=== PATIENT | male | born 1995 | race Caucasian/White ===

== ENCOUNTER 2016-06-04 21:55 | Emergency (ER) | payer OTHER ==
[~2016-06-04] VITALS: Ht 172.7 cm; Wt 64.0 kg
[~2016-06-04 21:55] MED LIST: ASPEC325 PO
[2016-06-04 22:06] VITALS: TEMP 37.1; Ht 172.7 cm; Wt 64.0 kg
[2016-06-04] MEDS ORDERED: CHOL1000 PO (22:48)
[2016-06-04] MEDS ORDERED: OXYCODONE IR HOME PACK PO ONE (23:30)
[2016-06-04] MEDS ORDERED: OXYC1TAB3 PO (23:51)
[2016-06-05 00:06] VITALS: BP 116/75; PULSE 94; O2SAT 94
--- NOTE | 2016-06-05 05:06 | EMERGENCY ROOM VISIT NOTE ---
ED Visit Note First contact with patient: 22:30 CHIEF COMPLAINT: Left willingham pain HISTORY OF PRESENT ILLNESS: This 20-year-old patient presents to the emergency department with friend after sustaining an injury to the left willingham during hockey when he was slammed into the wall . The patient complains of pain along the midshaft of the willingham. The patient denies pain of the foot knee, hip, ankle. The patient rates the pain as throbbing and 5/10. The patient is not able to bear weight on the foot. Constant pain, worse with movement, weight bearing, and the dependent position. No knee pain, the patient is able to move their toes. No numbness or weakness of the foot, no laceration. The patient has not had a previous fracture to this ankle. The patient has taken nothing for the pain. The patient denies any other injury. Patient has prior surgery on the site for chainsaw injury last year. Nolvia it was his orthopedic doctor REVIEW OF SYSTEMS: A 6 system review of systems was completed with positives and pertinent negatives listed in the HPI. ALLERGIES: bee MEDICATIONS: None PMH: Left leg injury SOCIAL HISTORY: No drug use PHYSICAL EXAM: Vital Signs: Reviewed Nurse's notes, vital signs stable. GENERAL : Pleasant male, no acute distress, but appears in pain, well-developed, well- nourished. MENTAL STATUS: Alert, oriented to person place and time, and cooperative. MUSCULOSKELETAL: The left midshaft of the tib-fib is edematous concerning for injury with prior surgical scars present and tender to palpation. Left knee, ankle, foot and hip are nontender to palpation The foot and toes are warm and well-perfused. Dorsalis pedis pulse 2+. Sensation to pain and light touch is intact. Capillary refill less than 2 seconds. EMERGENCY DEPARTMENT COURSE: I examined the patient. Patient declined pain meds. X-rays of the left tib-fib were reviewed by myself and my attending concerning for comminuted midshaft of the tibia. I consulted orthopedics and Dr. De Souza recommends posterior splint with stirrup and crutches. He recommends patient be nonweightbearing and will see the patient tomorrow in clinic. Ortho-Glass stirrup and posterior splint was applied to the tib-fib under my direction and the position was satisfactory. Neurovascular status was rechecked and intact. The patient was instructed on the use of crutches. The patient was discharged home in good condition. He was advised to call orthopedics at 8 AM in the morning for definitive care for the injury. He was advised to return to the ER immediately for severe pain, numbness, tingling, worsening sign or symptoms or as needed. DIAGNOSIS: Left comminuted fracture of the tibia DISCHARGE INSTRUCTIONS: As below Current/Historical Medications Scheduled Cholecalciferol (Vitamin D3), 1 TAB PO DAILY Scheduled PRN Oxycodone Immediate Rel Tab (Roxicodone Ir), 1-2 TAB PO Q4H PRN for Severe Pain Allergies Uncoded Allergies: BEE STINGS (Allergy, Unknown, 07/01/02) Vital Signs Date Time Temp Pulse Resp B/P Pulse Ox O2 Delivery O2 Flow Rate FiO2 06/05/16 00:06 94 18 116/75 94 Room Air 06/04/16 22:06 37.1 103 18 134/80 98 Room Air Medications Administered Medications (Trade) Dose Ordered Sig/Nazia Route Start Time Stop Time Status Last Admin Dose Admin Oxycodone HCl (Roxicodone Immediate Rel 5MG Home Pack) 1 homepack UD ONCE PO 06/04/16 23:30 06/04/16 23:31 DC 06/05/16 00:14 1 HOMEPACK Departure Information Impression Primary Impression: Closed left tibial fracture Dispostion Home / Self-Care Condition GOOD Prescriptions Oxycodone Immediate Rel Tab (ROXICODONE IR) 5 Mg Tab 1-2 TAB PO Q4H Y for Severe Pain, #20 TAB Prov: Rehka Vick .EASTON 06/04/16 Referrals Bi De SouzaDErwinO. Forms HOME CARE DOCUMENTATION FORM, Work Instructions, Return To Work: 3 days IMPORTANT VISIT INFORMATION Patient Instructions My [facility], ED Fx Lower Ext Additional Instructions DO NOT drive, drink alcohol, operate machinery, or perform dangerous activities today. You were given medications in the ER that can affect your ability to safely function or operate a vehicle. Oxycodone (OxyIR) 5mg: Take 1-2 pills every four hours for breakthrough pain. Avoid alcohol, operating machinery or dangerous equipment, working on ladders or roofs, DRIVING, or situations where being under the influence may be dangerous. It is recommended to use an skaj-fwb-mogegve stool softener such as Colace, 100mg twice daily while taking this medication to avoid constipation. NO MOTRIN or any NSAIDs until cleared by ORTHO. Acetaminophen(Tylenol) may be used for fever or pain. Use 1000mg every six hours as needed. Avoid using more than 3000mg in a 24 hour period. This medication can be taken if you need to drive, work, or perform activities which may be dangerous when taking narcotic pain medication. Ice compresses for 20 minutes at a time four times daily for 2-3 days. Use the crutches as instructed. REMAIN NONE WEIGHT BEARING UNTIL CLEARED BY ORTHO. Rest and elevate your injury. Do not get the splint wet. If your splint feels excessively tight, you have worsening pain, develop numbness or tingling, or your digits appear blue, loosen the adolfo wrap. Then reapply the adolfo wrap gently without removing the splint. If your symptoms are not quickly relieved return to the ER for re- evaluation. Continue current medications. Return to the ER immediately for any numbness, tingling, severe pain, extreme swelling in the extremity or as needed. Call Orthopedics tomorrow to arrange follow up for your injury. Work Instructions Return To Work: 3 days
--- NOTE | 2016-06-05 06:35 | DIAGNOSTIC IMAGING REPORT ---
LEFT TIBIA/FIBULA 2 VIEWS ROUTINE CLINICAL HISTORY: Left willingham injury. COMPARISON: Left tibia and fibular radiographs July 21, 2015. FINDINGS: There is a mildly displaced, comminuted fracture within the mid shaft of the left tibia. This is the site of injury shown on exam of July 21, 2015. No acute fracture of the left fibula is identified. Alignment of the left knee and ankle appears anatomic. There is no left knee joint effusion. IMPRESSION: Mildly displaced comminuted mid shaft fracture of the left tibia, at site of injury shown on earlier exam of July 21, 2015. The underlying cortex is heterogeneous and this is a site of injury shown on exam of July 21, 2015. This suggest an acute fracture superimposed upon old injury. Electronically signed by: Mikhail Dickens M.D. 06/05/2016 6:33 AM Dictated Date/Time: 06/05/2016 6:29 AM
[2016-06-06] MEDS ORDERED: CHOL1TAB53 PO (12:51)
[2016-06-06] MEDS ORDERED: OXYC1TAB3 PO (12:51)
== END 2016-06-05 00:22 | disposition home or self-care (01) ==
LOC: C.EDB 21:58 → C.EDC 06-05 00:22
DX: S82.252A Displaced comminuted fracture of shaft of left tibia, initial encounter for closed fracture (principal); W50.0XXA Accidental hit or strike by another person, initial encounter; Y93.22 Activity, ice hockey

== ENCOUNTER 2016-06-07 14:40 | Observation (INO) | payer OTHER ==
[2016-06-06 12:45] VITALS: BMI 21.0
--- NOTE | 2016-06-06 18:13 | HISTORY & PHYSICAL EXAMINATION ---
DATE OF ADMISSION: 06/07/2016 SUBJECTIVE CHIEF COMPLAINT: Left lower leg pain. HISTORY OF PRESENT ILLNESS: This is a patient who was playing hockey yesterday when he and another player collided against the boards. He is unsure of exactly how the leg was injured; however, he had significant pain on the left lower extremity. He was taken to the Emergency Room at [facility] where x-rays were performed. He was noted to have a displaced tibia fracture. He is now being set up for surgical treatment. PAST MEDICAL HISTORY: None. PAST SURGICAL HISTORY: Surgery for a chainsaw injury to his left lower extremity 1 year ago. ALLERGIES: No known drug allergies. CURRENT MEDICATIONS: None. FAMILY HISTORY: Noncontributory. SOCIAL HISTORY: The patient denies alcohol and tobacco use. OBJECTIVE PHYSICAL EXAMINATION: GENERAL: The patient is alert and oriented x3. He is in no acute distress. He is a well-dressed, well-nourished 20-year-old male whose affect is appropriate. CARDIOVASCULAR: Heart has a regular rhythm and rate without murmurs Post. tib pulse +2/4, capillary refill less than 2 seconds. LUNGS: Clear to auscultation bilateral. LYMPHATICS: No evidence of any swollen lymph nodes. MUSCULOSKELETAL: The patient is nonweightbearing on the left lower extremity, using crutches and a wheelchair. Upon inspection of the left lower extremity, he has swelling of the left tibia. There is tenderness over the mid shaft area of the tibia. No range of motion or strength testing was performed. SKIN: There are no scars, rashes or ulcers noted. NEUROLOGIC: Sensation is normal and intact distally, left lower extremity. X-RAY EXAMINATION: AP and lateral views of the left tibia and fibula noted an angulated oblique fracture of the tibial shaft. ASSESSMENT AND DIAGNOSES: 1. Left tibial fracture. PLAN: Above assessment was discussed with the patient and his family. At this time it was recommended the patient undergo an ORIF of the left tibia with an intramedullary nail. All potential risks, benefits, complications, alternatives and rehab have been discussed with the patient. At this time he wishes to proceed with surgery as indicated. He is scheduled for the surgery on 06/07/2016. SHORTY
[~2016-06-07] VITALS: Ht 172.7 cm; Wt 64.5 kg
[~2016-06-07 14:40] MED LIST changes: -ASPEC325 PO; +CEFAZOLIN 1000MG/55 ML D5W IV SCH; +CHOL1TAB53 PO; +LACTATED RINGER'S 1000ML 1,000 ML IV SCH; +OXYC1TAB3 PO
[2016-06-07 15:10] LABS: HEMATOCRIT 45.5 % (42-52); MEAN CELL VOLUME 85.4 fL (80-100); MEAN CORPUSCULAR HEMOGLOBIN 29.5 pg (25-34); MEAN PLATELET VOLUME 9.4 fL (7.4-10.4); PLATELET COUNT 247 K/uL (130-400); RED BLOOD COUNT 5.33 M/uL (4.7-6.1); WHITE BLOOD COUNT 8.47 K/uL (4.8-10.8)
[2016-06-07 15:11] VITALS: BP 127/81; PULSE 88; TEMP 36.6; O2SAT 100; Ht 172.7 cm; Wt 64.5 kg
[2016-06-07 15:18] LABS: MEAN CORPUSCULAR HGB CONC 34.5 g/dl (32-36)
--- NOTE | 2016-06-07 15:19 | History & Physical Bridge Note ---
H&P Re-Evaluation Bridge Note: I have examined the patient, reviewed the History & Physical and in the interval since the performance of the History & Physical I have noted the following changes of clinical significance: No changes noted
[2016-06-07] MEDS ORDERED: MIDAZOLAM HCL 1 MG/ML 2ML VIAL ONE (15:52)
[2016-06-07] MEDS ORDERED: ROCURONIUM BROMIDE 10 MG/ML 5 ML VIAL ONE (15:57)
[2016-06-07] MEDS ORDERED: ONDANSETRON INJ 2 MG/ML 2 ML VIAL ONE (15:57)
[2016-06-07] MEDS ORDERED: DEXAMETHASONE SOD INJ 4 MG/ML VIAL ONE (15:57)
[2016-06-07] MEDS ORDERED: NEOSTIGMINE METHYLSULFATE 5 MG/5 ML SYR ONE (15:57)
[2016-06-07] MEDS ORDERED: PROPOFOL IV EMULSION 10 MG/ML 20 ML VIAL IV ONE (15:57)
[2016-06-07] MEDS ORDERED: LIDOCAINE HCL 2% 2 ML VIAL (20MG/ML) ONE (15:57)
[2016-06-07] MEDS ORDERED: GLYCOPYRROLATE INJ 0.2 MG/ML VIAL ONE (15:57)
[2016-06-07] MEDS ORDERED: FENTANYL CITRATE INJ 50 MCG/1 ML 2 ML VIAL ONE ×2 (15:57→18:30)
[2016-06-07] MEDS ORDERED: HYDROmorphone INJ 2 MG/ML SYR/VIAL ONE ×2 (16:54→18:57)
[2016-06-07] MEDS ORDERED: BACITRACIN 50,000 UNITS IT ONE (17:59)
--- NOTE | 2016-06-07 18:09 | [facility] Post Operative Brief Note ---
Immediate Operative Summary Operative Date Jun 07, 2016. Pre-Operative Diagnosis Left closed displaced midshaft tibial fracture Post-Operative Diagnosis Same as preoperative diagnosis Procedure(s) Performed Left tibia: open reduction internal fixation tibia shaft fracture with intramedullary nail Surgeon Dr. De Souza Shipping And Receiving Associate Surgeon(s) Angela Patterson PA-C Estimated Blood Loss 10ml Findings See dict Specimens none Drains None Anesthesia GLMA Complication(s) None Disposition Recovery Room / PACU
[2016-06-07] MEDS ORDERED: ONDANSETRON INJ 2 MG/ML 2 ML VIAL IV PRN ×2 (18:30→18:45)
[2016-06-07] MEDS ORDERED: OXYCODONE HCL IR 5 MG TAB (IMMEDIATE RELEASE) PO PRN (18:30)
[2016-06-07] MEDS ORDERED: MAGNESIUM HYDROXIDE SUSP 30 ML UDC PO PRN (18:30)
[2016-06-07] MEDS ORDERED: ZOLPIDEM TARTRATE 5 MG TAB PO PRN (18:30)
[2016-06-07] MEDS ORDERED: MoRPHine SULFATE 2 MG/ML CARP IV PRN ×2 (18:30→21:30)
[2016-06-07] MEDS ORDERED: METOCLOPRAMIDE HCL INJ 5 MG/ML 2 ML VIAL IV PRN (18:30)
[2016-06-07] MEDS ORDERED: ALUMINUM/MAGNESIUM/SIMETH (MAALOX MAX) 30 ML UDC PO PRN (18:30)
[2016-06-07] MEDS ORDERED: EpHEDrine SULFATE INJ 50 MG/ML AMP IV PRN (18:45)
[2016-06-07] MEDS ORDERED: ATROPINE SULFATE 0.1 MG/ML 5ML SYR IV PRN (18:45)
[2016-06-07] MEDS ORDERED: FENTANYL CITRATE INJ 50 MCG/1 ML 2 ML VIAL IV PRN (18:45)
[2016-06-07] MEDS ORDERED: HYDROmorphone INJ 1 MG/ML SYR IV PRN (18:45)
--- NOTE | 2016-06-07 19:14 | DIAGNOSTIC IMAGING REPORT ---
INTRAOPERATIVE LEFT TIBIA AND FIBULA CLINICAL HISTORY: Fracture status post internal fixation COMPARISON STUDY: 06/04/2016 FINDINGS: 7 fluoroscopic spot images are provided for interpretation. 2 minutes and 7 seconds of fluoroscopic time was utilized. The patient's left tibial fracture has been internally fixated with intramedullary addi. This is stabilized proximally with 2 transverse screws, and distally with 2 transverse screws. IMPRESSION: Internally fixated right tibial fracture with an intramedullary addi. Electronically signed by: Clay Mayer M.D. 06/07/2016 7:12 PM Dictated Date/Time: 06/07/2016 7:11 PM
[2016-06-07] MEDS ORDERED: DiphenhydrAMINE HCL 50 MG/ML VIAL ONE (19:38)
[2016-06-07 19:50] VITALS: BP 161/83; PULSE 102; TEMP 37.4; O2SAT 93
[2016-06-07 20:21] VITALS: BP 151/81; PULSE 93; TEMP 36.7; O2SAT 92
--- NOTE | 2016-06-07 20:30 | Anesthesiology Progress Note ---
Anesthesia Post Op Note Date & Time Jun 07, 2016 at 20:30 Vital Signs Pain Intensity: 4.0 Vital Signs Past 12 Hours Date Time Temp Pulse Resp B/P Pulse Ox O2 Delivery O2 Flow Rate FiO2 06/07/16 20:21 36.7 93 14 151/81 92 Room Air 06/07/16 19:50 Room Air 06/07/16 19:50 37.4 102 16 161/83 93 Room Air 06/07/16 19:19 105 13 100 06/07/16 19:19 104 13 06/07/16 19:18 151/90 06/07/16 19:16 37.4 110 16 151/90 100 Nasal Cannula 2 06/07/16 19:14 103 13 151/91 99 06/07/16 19:14 105 13 06/07/16 19:09 94 7 100 06/07/16 19:09 96 7 06/07/16 19:08 147/89 06/07/16 19:04 98 7 06/07/16 19:04 92 7 100 06/07/16 19:03 153/91 06/07/16 19:00 95 7 99 06/07/16 19:00 93 7 06/07/16 18:58 144/90 06/07/16 18:55 87 11 06/07/16 18:55 90 11 99 06/07/16 18:54 162/100 06/07/16 18:53 148/98 06/07/16 18:50 103 12 100 06/07/16 18:50 105 12 06/07/16 18:48 159/100 06/07/16 18:45 103 11 06/07/16 18:45 103 11 100 06/07/16 18:43 150/93 06/07/16 18:40 99 10 100 06/07/16 18:40 98 10 06/07/16 18:38 143/96 06/07/16 18:35 97 13 100 06/07/16 18:35 98 13 06/07/16 18:33 165/107 06/07/16 18:30 99 15 06/07/16 18:30 99 15 100 06/07/16 18:28 167/107 06/07/16 18:26 185/117 06/07/16 18:25 113 14 96 06/07/16 18:25 111 14 06/07/16 18:25 36.9 114 18 171/106 99 Mask 10 06/07/16 15:11 36.6 88 18 127/81 100 Notes Mental Status: alert / awake / arousable, participated in evaluation Pt Amnestic to Procedure: Yes Nausea / Vomiting: adequately controlled Pain: adequately controlled Airway Patency, RR, SpO2: stable & adequate BP & HR: stable & adequate Hydration State: stable & adequate Anesthetic Complications: no major complications apparent
[2016-06-07 20:54] VITALS: BP 159/88; PULSE 97; TEMP 37.1; O2SAT 93
--- NOTE | 2016-06-07 21:12 | OPERATIVE REPORT ---
DATE OF OPERATION: 06/07/2016 PREOPERATIVE DIAGNOSIS: Left closed displaced midshaft tibial fracture. POSTOPERATIVE DIAGNOSIS: Same. PROCEDURE: Open reduction internal fixation with intramedullary nailing, left tibial fracture with a Synthes 10 mm x 360 mm titanium cannulated tibial nail with four 5 mm titanium locking screws, 2 proximal interlocks and 2 distal interlocks. SURGEON: Dr. De Souza. PRIMARY HEALTH ORGANISATION MANAGER: Chidi Patterson PA-C, who was present for patient positioning, sterile prep and drape, management of retractors and instruments. He was present through the critical portions of the case including wound closure, application of sterile dressing and transport of the patient to recovery. ANESTHESIA: General LMA. SPECIMENS: None. DRAINS: None. COMPLICATIONS: None. BLOOD LOSS: 10 mL. PERTINENT HISTORY: This is a 20-year-old gentleman who was playing hockey struck the boards by a player and had immediate left tibia pain. Unable to ambulate, transported to [facility], seen in the Emergency Department and diagnosed with a tibia fracture, confirmed with radiographs, splinted and then sent for orthopedic evaluation. The patient was then scheduled for surgery as indicated. All potential risks, benefits, complications, alternatives, potential for incomplete relief of symptoms, need for further surgery, DVT, PE, , persistent pain, swelling, scarring, weakness, neurovascular injury, wound complications, hardware breakage, nonunion, malunion or wound dehiscence was discussed with patient and his family and decided to proceed with the procedure as indicated. PROCEDURE: The patient was taken to the operative suite, placed supine on the operating room table. After reviewing consent and identification of proper operative site, the patient was anesthetized, LMA was placed. Tourniquet was placed high on the left thigh over cast padding. Left lower extremity was then sterilely prepped and draped in usual fashion, elevated, and exsanguinated with an Esmarch bandage and tourniquet inflated to 350 mmHg. Next, a 10 blade scalpel was used to make an incision just to the medial border of the patellar tendon at the level of the knee joint. The incision was deepened through subcutaneous tissue. Meticulous hemostasis was achieved with electrocautery. Thickness skin flaps were developed. Fascia was incised along the skin incision revealing the patellar tendon. Patellar tendon was then carefully retracted and protected. The incision was deepened through the subcutaneous tissue into the level of the joint capsule, joint capsule was then incised revealing the fat pad, the fat pad was maintained intact. The anterior central aspect of the tibia was visualized and then with appropriate retractors for retracting soft tissue, a guide addi was placed approximately tibia confirmed using AP and lateral C-arm projections. Next, proximal reaming was performed to open the canal, followed by placement of ball tip guide addi which was placed to the proximal portion of the fracture using live fluoroscopic assistance, the ball-tip guidewire was passed across the fracture into the distal fragment to place in the center-center position of the distal tibia. Next, sequential reaming was performed from 8 mm up to a size of 11.5 mm. Next, this nail was measured to be 360 mm nail and then the wound was copiously irrigated with pulsatile lavage with bacitracin followed by implantation of a 360 mm x 10 mm titanium cannulated tibial nail. This was placed without difficulty stabilizing the fracture in near anatomic position. There was some minor displacement of the posterior butterfly fragment which was noted on the prior radiographs. Next, the proximal interlocking screws were placed using the targeting alignment jig proximally with a small percutaneous incision in the proximal medial tibia followed by use of a hemostat to spread the soft tissues and then placement of the appropriate length screws under live fluoroscopic assistance. Next, using free hand technique, 2 distal interlocking screws were placed after the foot was backslapped to compress the fracture. Two small incisions were made in the distal medial tibial shaft under live fluoroscopic assistance. Distal interlocking screws were placed, 5 mm in diameter of appropriate length. Next, final x-rays were obtained, AP and lateral views noting near anatomic reduction of the fracture stable fixation of the tibia by intramedullary nailing. Next, all wounds were copiously irrigated with sterile normal saline with bacitracin and the kneecaps was closed using #1 Vicryl. The peritenon was closed using 2-0 Vicryl, the dermis was closed using buried interrupted 2-0 Vicryl and skin was closed using interrupted nylon sutures. Next, the stab incisions of the medial tibia were closed using interrupted nylon sutures. A sterile compressive dressing was applied, overwrapped with a posterior splint and Chuy wrap. The foot was held in neutral dorsiflexion. Next, the tourniquet was released, the patient was awakened and taken to recovery in stable condition. I attest to the content of the Intraoperative Record and any orders documented therein. Any exceptio ns are noted below.
[2016-06-07] MEDS: D5W AND 1/2NSS + 20MEQ KCL 1,000 ML IV SCH (21:30)
[2016-06-07] MEDS ORDERED: IV FLUIDS COMPLETED PRN (21:30)
[2016-06-07] MEDS: CEFAZOLIN IV 1,000 MG in DEXTROSE 5% 50ML 50 ML IV SCH (21:30)
[2016-06-07] MEDS ORDERED: MoRPHine SULFATE 4 MG/ML 1 ML CARP\\VIAL IV PRN (21:30)
[2016-06-07] MEDS ORDERED: MoRPHine SULFATE 10 MG/ML CARP/VIAL IV PRN (21:30)
[2016-06-07] MEDS: ACETAMINOPHEN 500 MG TAB PO SCH (21:31)
[2016-06-07 21:57] VITALS: BP 152/85; PULSE 98; TEMP 37; O2SAT 93
[2016-06-07 22:52] VITALS: BP 149/89; PULSE 98; TEMP 37; O2SAT 96
[2016-06-08 04:00] VITALS: BP 139/90; PULSE 98; TEMP 36.8; O2SAT 96
[2016-06-08] MEDS: ACETAMINOPHEN 500 MG TAB PO SCH (05:29)
[2016-06-08] MEDS: CEFAZOLIN IV 1,000 MG in DEXTROSE 5% 50ML 50 ML IV SCH (05:29)
[2016-06-08] MEDS: D5W AND 1/2NSS + 20MEQ KCL 1,000 ML IV SCH (05:42)
[2016-06-08 08:01] VITALS: BP 140/90; PULSE 83; TEMP 37.2; O2SAT 99
[2016-06-08] MEDS ORDERED: FERROUS GLUCONATE 324 MG TAB PO SCH (08:30)
[2016-06-08] MEDS ORDERED: MULTIVITAMIN TAB PO SCH (09:00)
[2016-06-08] MEDS ORDERED: PANTOprazole SOD 40 MG TAB PO SCH (09:00)
[2016-06-08] MEDS ORDERED: ASPIRIN 325 MG ECTAB PO SCH (09:00)
--- NOTE | 2016-06-08 09:32 | Orthopedic Progress Note ---
Orthopedic Progress Note Date of Service Jun 08, 2016. Subjective Post OP Day: 1 Reports: feeling well Objective N/V intact, dressing C/D/I, toes mobile Date Time Temp Pulse Resp B/P Pulse Ox O2 Delivery O2 Flow Rate FiO2 06/08/16 08:01 37.2 83 16 140/90 99 Room Air 06/08/16 08:01 Room Air 06/08/16 04:00 36.8 98 16 139/90 96 Room Air 06/08/16 00:12 Room Air 06/07/16 22:52 37.0 98 149/89 96 Room Air 06/07/16 21:57 37.0 98 14 152/85 93 Room Air 06/07/16 20:54 37.1 97 14 159/88 93 Room Air 06/07/16 20:21 36.7 93 14 151/81 92 Room Air 06/07/16 19:50 Room Air 06/07/16 19:50 93 Room Air 06/07/16 19:50 37.4 102 16 161/83 93 Room Air 06/07/16 19:19 105 13 100 06/07/16 19:19 104 13 06/07/16 19:18 151/90 06/07/16 19:16 37.4 110 16 151/90 100 Nasal Cannula 2 06/07/16 19:14 103 13 151/91 99 06/07/16 19:14 105 13 06/07/16 19:09 94 7 100 06/07/16 19:09 96 7 06/07/16 19:08 147/89 06/07/16 19:04 98 7 06/07/16 19:04 92 7 100 06/07/16 19:03 153/91 06/07/16 19:00 95 7 99 06/07/16 19:00 93 7 06/07/16 18:58 144/90 06/07/16 18:55 87 11 06/07/16 18:55 90 11 99 06/07/16 18:54 162/100 06/07/16 18:53 148/98 06/07/16 18:50 103 12 100 06/07/16 18:50 105 12 06/07/16 18:48 159/100 06/07/16 18:45 103 11 06/07/16 18:45 103 11 100 06/07/16 18:43 150/93 06/07/16 18:40 99 10 100 06/07/16 18:40 98 10 06/07/16 18:38 143/96 06/07/16 18:35 97 13 100 06/07/16 18:35 98 13 06/07/16 18:33 165/107 06/07/16 18:30 99 15 06/07/16 18:30 99 15 100 06/07/16 18:28 167/107 06/07/16 18:26 185/117 06/07/16 18:25 113 14 96 06/07/16 18:25 111 14 06/07/16 18:25 36.9 114 18 171/106 99 Mask 10 06/07/16 15:11 36.6 88 18 127/81 100 Laboratory Results 24 Hours: Test 06/07/16 15:04 Hematocrit 45.5 % Hemoglobin 15.7 g/dL Assessment & Plan Assessment: 20 yo male stable POD #1 s/p IM nail left tibia Plan: 1. DVT prophylaxis- ASA 2. D/C planing- home today
[2016-06-08] MEDS ORDERED: ASPEC325 PO (09:34)
[2016-06-08] MEDS ORDERED: RXC5 PO (09:34)
[2016-06-08] MEDS ORDERED: ACET-1138 PO (09:34)
--- NOTE | 2016-06-08 09:37 | Discharge Instructions ---
Discharge Instructions Admission Reason for Admission: Left Tibia Shaft Fracture Discharge Discharge Diagnosis / Problem: Left tibial shaft fracture Discharge Goals Goal(s): Decrease discomfort, Improve function Activity Recommendations Activity Limitations: as noted below Weightbearing Status: Left non-weightbearing . Instructions / Follow-Up Instructions / Follow-Up Nonweightbearing left lower extremity with crutches. Frequent ice and elevation. Move toes. Maintain dressing/splint until follow-up with MD ~ 10- 14 days. Call office to make appt for follow-up in 10-14 days Current Hospital Diet Patient's current hospital diet: Regular Diet Discharge Diet Recommended Diet: Regular Diet Procedures Procedures Performed: Left tibia: open reduction internal fixation tibia shaft fracture with intramedullary nail Pending Studies Studies pending at discharge: no Medical Emergencies . Who to Call and When: Medical Emergencies: If at any time you feel your situation is an emergency, please call 911 immediately. . Non-Emergent Contact Non-Emergency issues call your: Surgeon Call Non-Emergent contact if: temperature is above 101.5, your pain is not controlled, wound has increased drainage, wound has increased redness . "Provider Documentation" section prepared by Chidi Patterson PA-C. VTE Core Measure Inpt VTE Proph given/why not?: Other Anticoagulation (ASA 325mg daily), T.E.D. Stockings, SCD's
[2016-06-08 09:55] VITALS: BP 140/90; PULSE 83; TEMP 37.2; O2SAT 99
[2016-06-08 11:22] VITALS: BP 131/83
--- NOTE | 2016-06-12 15:20 | DISCHARGE SUMMARY ---
CHIEF COMPLAINT: Left tibia fracture. Please see complete history and physical examination. HOSPITAL COURSE: The patient underwent left tibial IM nailing without complication. He tolerated the procedure well and was discharged to the recovery room in stable condition. His postoperative course was relatively uneventful. His postoperative pain was reasonably well controlled with a combination of IV and oral pain medications. He was started on aspirin for DVT prophylaxis. He was comfortable the next day and was discharged home. He will ambulate nonweightbearing with crutches. He will maintain his splint/dressing until up with Dr. De Souza in approximately 10-14 days.
== END 2016-06-08 12:05 | disposition home or self-care (01) ==
LOC: ENRESERVDT → ENRESERVTM → C.ACU 14:40 → C.MSW 15:25
PROVIDERS: ADMIT Orthopaedic Surgery Sports Medicine; ATTEND Orthopaedic Surgery Sports Medicine
DX: S82.202A Unspecified fracture of shaft of left tibia, initial encounter for closed fracture (principal); W51.XXXA Accidental striking against or bumped into by another person, initial encounter; Y93.22 Activity, ice hockey; Y92.330 Ice skating rink (indoor) (outdoor) as the place of occurrence of the external cause; Y99.8 Other external cause status